=== PATIENT | female | born 1995 | race Caucasian/White ===

== ENCOUNTER 2020-02-06 23:50 | Emergency (ER) | payer BC, OTHER ==
[~2020-02-06] VITALS: Ht 172.7 cm; Wt 145.0 kg
[2020-02-07] MEDS ORDERED: LACTATED RINGERS 1,000 ML IV ONE (00:29)
[2020-02-07] MEDS ORDERED: ACETAMINOPHEN 500 MG TAB (TYLENOL) PO ONE (00:30)
[2020-02-07] MEDS ORDERED: ONDANSETRON 4 MG/2 ML (SDV) Z0FRAN IVP ONE (00:30)
--- NOTE | 2020-02-07 00:51 | ED Cough/URI ---
General Chief Complaint: Cough/Cold/Flu Symptoms Stated Complaint: COUGH Source: patient Exam Limitations: no limitations History of Present Illness Date Seen by Provider: Feb 07, 2020 Time Seen by Provider: 00:16 Initial Comments Patient presents to the ER by private conveyance with chief complaint she's had 2 weeks of cough and last couple days she's had more pain with deep inspiration or cough. She went to her walk-in clinic and was diagnosed with bronchitis and put on an inhaler which she says helps for a little bit as well as put on a steroid. She has no previous history of medical problems. She is not having any fever. She has had some diarrhea as well as nausea and vomiting for the past few days which has made it hard for her to eat and drink. She says she feels very dehydrated. She is not on any medications. She denies smoking, drinking or recreational drugs. Allergies and Home Medications Allergies Coded Allergies: No Known Drug Allergies (Unverified , 02/07/20) Patient Home Medication List Home Medication List Reviewed: Yes Review of Systems Review of Systems Constitutional: No chills, No fever; malaise EENTM: No ear discharge, No ear pain Respiratory: cough; No phlegm; short of breath; No wheezing Cardiovascular: No chest pain, No Hx of Intervention, No palpitations Gastrointestinal: No abdominal pain; diarrhea, nausea, vomiting Genitourinary: No decreased output, No discharge Musculoskeletal: No back pain, No joint pain Skin: No pruritus, No rash Psychiatric/Neurological: Denies Headache, Denies Numbness, Denies Paresthesia All Other Systems Reviewed Negative Unless Noted: Yes Past [id number] Hx Patient Social History Alcohol Use: Denies Use Recreational Drug Use: No Smoking Status: Never a Smoker Recent Foreign Travel: No Contact w/Someone Who Travel: No Physical Exam Vital Signs - First Documented Capillary Refill : Height: '" Weight: lbs. oz. kg; BMI Method: General Appearance: WD/WN, mild distress, obese Eyes: Bilateral Eye Normal Inspection, Bilateral Eye PERRL, Bilateral Eye EOMI HEENT: PERRL/EOMI, normal ENT inspection; No pharynx normal (oropharynx is mildly dry) Respiratory: lungs clear, normal breath sounds, no respiratory distress, no accessory muscle use Cardiovascular: normal peripheral pulses, regular rate, rhythm Extremities: normal range of motion, non-tender, normal inspection, normal capillary refill Neurologic/Psychiatric: alert, normal mood/affect, oriented x 3 Skin: normal color, warm/dry Progress/Results/Core Measures Suspected Sepsis SIRS Temperature: Pulse: Respiratory Rate: Laboratory Tests 02/07/20 00:55: White Blood Count 5.5 Blood Pressure / Mean: Laboratory Tests 02/07/20 00:55: Creatinine 1.02, Platelet Count 175, Total Bilirubin 0.8 Results/Orders Lab Results Laboratory Tests Test 02/07/20 00:55 Range/Units White Blood Count 5.5 4.3-11.0 10^3/uL Red Blood Count 5.64 H 3.80-5.11 10^6/uL Hemoglobin 15.8 11.5-16.0 g/dL Hematocrit 48 35-52 % Mean Corpuscular Volume 85 80-99 fL Mean Corpuscular Hemoglobin 28 25-34 pg Mean Corpuscular Hemoglobin Concent 33 32-36 g/dL Red Cell Distribution Width 12.7 10.0-14.5 % Platelet Count 175 130-400 10^3/uL Mean Platelet Volume 11.5 9.0-12.2 fL Immature Granulocyte % (Auto) 1 % Neutrophils (%) (Auto) 80 H 42-75 % Lymphocytes (%) (Auto) 14 12-44 % Monocytes (%) (Auto) 5 0-12 % Eosinophils (%) (Auto) 0 0-10 % Basophils (%) (Auto) 0 0-10 % Neutrophils # (Auto) 4.5 1.8-7.8 10^3/uL Lymphocytes # (Auto) 0.8 L 1.0-4.0 10^3/uL Monocytes # (Auto) 0.3 0.0-1.0 10^3/uL Eosinophils # (Auto) 0.0 0.0-0.3 10^3/uL Basophils # (Auto) 0.0 0.0-0.1 10^3/uL Immature Granulocyte # (Auto) 0.0 0.0-0.1 10^3/uL Sodium Level 141 135-145 MMOL/L Potassium Level 3.8 3.6-5.0 MMOL/L Chloride Level 107 98-107 MMOL/L Carbon Dioxide Level 21 21-32 MMOL/L Anion Gap 13 5-14 MMOL/L Blood Urea Nitrogen 11 7-18 MG/DL Creatinine 1.02 0.60-1.30 MG/DL Estimat Glomerular Filtration Rate > 60 BUN/Creatinine Ratio 11 Glucose Level 127 H 70-105 MG/DL Calcium Level 9.2 8.5-10.1 MG/DL Corrected Calcium 8.5-10.1 MG/DL Total Bilirubin 0.8 0.1-1.0 MG/DL Aspartate Amino Transf (AST/SGOT) 128 H 5-34 U/L Alanine Aminotransferase (ALT/SGPT) 191 H 0-55 U/L Alkaline Phosphatase 56 40-136 U/L Total Protein 8.3 H 6.4-8.2 GM/DL Albumin 4.6 H 3.2-4.5 GM/DL Serum Test, Qualitative NEGATIVE NEGATIVE Micro Results Microbiology 02/07/20 Influenza Types A,B Antigen (BRENDAN) - Final, Complete My Orders Orders - VANCE TURNER Ondansetron Injection (Zofran Injectio (02/07/20 00:30) Acetaminophen Tablet (Tylenol Tablet) (02/07/20 00:30) Ed Iv/Invasive Line Start (02/07/20 00:29) Lactated Ringers (Lr 1000 Ml Iv Solution (02/07/20 00:29) Cbc With Automated Diff (02/07/20 00:29) Comprehensive Metabolic Panel (02/07/20 00:29) Influenza A And B Antigens (02/07/20 00:29) Coronavirus Sars-Cov-2 So 2018 (02/07/20 00:29) Hcg,Qualitative Serum (02/07/20 00:29) Chest 1 View, Ap/Pa Only (02/07/20 01:38) Medications Given in ED Current Medications Medications Dose Ordered Sig/Leticia Route Start Time Stop Time Status Last Admin Dose Admin Acetaminophen 1,000 mg ONCE ONCE PO 02/07/20 00:30 02/07/20 00:34 DC 02/07/20 00:50 1,000 MG Lactated Ringer's 1,000 ml @ 0 mls/hr Q0M ONCE IV 02/07/20 00:29 02/07/20 00:34 DC 02/07/20 00:50 999 MLS/HR Ondansetron HCl 8 mg ONCE ONCE IVP 02/07/20 00:30 02/07/20 00:34 DC 02/07/20 00:50 8 MG Vital Signs/I&O 9/25/20 9/25/20 00:14 00:14 Temp 35.8 Pulse 113 Resp 20 B/P (MAP) 123/67 (85) O2 Delivery Room Air Room Air Capillary Refill : Progress Note : Time: 00:50 Progress Note Plan to give her some ondansetron, IV fluids for her tachycardia and dehydration. We'll get a COVID-19 influenza swab sent out. We'll get some basic labs to assess kidney function and white count. Chest x-ray. Lungs sound clear and her oxygen saturations in the mid to upper 90s on room air with nonlabored breathing. Occasional dry cough heard. Because she he'll lie we are not doing a full sepsis workup. Despite heart rate 115 we first went in the room, after this provider less than room her heart rate is down in the low 90s. Diagnostic Imaging Diagonstic Imaging: Xray Plain Films/CT/US/NM/MRI: chest Comments No acute cardiopulmonary processes noted on one view chest x-ray. Reviewed: Reviewed by Me Departure Impression Primary Impression: Bronchitis Disposition: HOME, SELF-CARE Condition: Stable Departure-Patient Inst. Decision time for Depature: 02:20 Referrals: LAVINIA DE GUZMAN MD (PCP) Primary Care Physician Patient Instructions: Acute Bronchitis, Adult (DC) Add. Discharge Instructions: Drink plenty of fluids. Ondansetron one tablet under the tongue every 6 hours as necessary for nausea or vomiting. Tessalon Perles 1 tablet every 6 hours as necessary for cough. Quarantine until 72 hours after your symptoms completely go away. Someone will call you with results of your COVID-19 test within the next 2-3 days. Return to the nearest ER should you have worsening difficulty breathing or other worrisome symptoms. All discharge instructions reviewed with patient and/or family. Voiced understanding. Scripts Benzonatate (Tessalon Perle) 100 Mg Capsule 100 MG PO Q6H PRN for COUGH, #30 CAP 0 Refills Prov: VANCE TURNER 02/07/20 Ondansetron (Ondansetron Odt) 4 Mg Tab.rapdis 4 MG PO Q6H PRN for NAUSEA/VOMITING, #10 TAB 0 Refills Prov: VANCE TURNER 02/07/20 Work/School Note: Work Release Form Date Seen in the Emergency Department: Feb 07, 2020 Return to Work: Feb 17, 2020 Restrictions: No Restrictions Other Restrictions Listed Below: May return when symptom-free for 72 hours. VANCE TURNER Feb 07, 2020 00:51
[2020-02-07 01:08] LABS: BASOPHILS % (AUTO) 0 % (0-10); EOSINOPHILS % (AUTO) 0 % (0-10); HEMATOCRIT 48 % (35-52); HEMOGLOBIN 15.8 g/dL (11.5-16.0); LYMPHOCYTES # (AUTO) 0.8 10^3/uL (1.0-4.0); LYMPHOCYTES % (AUTO) 14 % (12-44); MEAN CORPUSCULAR HEMOGLOBIN 28 pg (25-34); MEAN CORPUSCULAR HGB CONC 33 g/dL (32-36); MEAN CORPUSCULAR VOLUME 85 fL (80-99); MEAN PLATELET VOLUME 11.5 fL (9.0-12.2); MONOCYTES # (AUTO) 0.3 10^3/uL (0.0-1.0); MONOCYTES % (AUTO) 5 % (0-12); NEUTROPHILS # (AUTO) 4.5 10^3/uL (1.8-7.8); NEUTROPHILS % (AUTO) 80 % (42-75); PLATELET COUNT 175 10^3/uL (130-400); WHITE BLOOD COUNT 5.5 10^3/uL (4.3-11.0)
[2020-02-07 01:20] LABS: ALBUMIN 4.6 GM/DL (3.2-4.5); CHLORIDE 107 MMOL/L (98-107); POTASSIUM 3.8 MMOL/L (3.6-5.0); SODIUM 141 MMOL/L (135-145)
[2020-02-07 01:21] LABS: CALCIUM 9.2 MG/DL (8.5-10.1)
[2020-02-07 01:22] LABS: GLUCOSE 127 MG/DL (70-105); TOTAL PROTEIN 8.3 GM/DL (6.4-8.2)
[2020-02-07 01:23] LABS: CARBON DIOXIDE 21 MMOL/L (21-32)
[2020-02-07 01:24] LABS: BILIRUBIN,TOTAL 0.8 MG/DL (0.1-1.0)
[2020-02-07 01:26] LABS: ALKALINE PHOSPHATASE 56 U/L (40-136); CREATININE SERUM 1.02 MG/DL (0.60-1.30); GFR ESTIMATED > 60
[2020-02-07 01:27] LABS: BUN/CREATININE RATIO 11
[2020-02-07 01:29] LABS: ALANINE AMINOTRANSFERASE 191 U/L (0-55)
[2020-02-07] MEDS ORDERED: BENZ-13 PO (02:29)
[2020-02-07] MEDS ORDERED: ONDA4TAB11 PO (02:29)
[2020-02-07 02:35] VITALS: BP 108/63
--- NOTE | 2020-02-07 17:23 | NUR ---
Notified patient of isolation and quarantine for COVID positive test. Answered questions.
--- NOTE | 2020-02-07 18:20 | NUR ---
[facility].
== END 2020-02-07 02:36 | disposition home or self-care (01) ==
LOC: ER 23:58
DX: U07.1 COVID-19 (principal); J40 Bronchitis, not specified as acute or chronic
CPT/HCPCS: 71045; 80053; 84703; 85025; 87804; 99284; U0002; 36415; 87635

== ENCOUNTER 2021-04-21 04:43 | Emergency (ER) | payer BC ==
[~2021-04-21] VITALS: Ht 173 cm; Wt 150.0 kg
[~2021-04-21 04:43] MED LIST: BENZ-13 PO; ONDA4TAB11 PO
[2021-04-21 05:25] VITALS: BP 148/82
--- NOTE | 2021-04-21 05:42 | ED GU-Female ---
General Chief Complaint: Foreign Body Stated Complaint: CONDOM IN VAGINA Source: patient History of Present Illness Date Seen by Provider: Apr 21, 2021 Time Seen by Provider: 05:30 Initial Comments PT ARRIVES VIA POV FROM HOME PT STATES SHE HAS A CONDOM IN HER VAGINA AND IS UNABLE TO REMOVE IT OCCURRED AT 0440 THIS AM NO COMPLAINTS PCP: DR. DE GUZMAN Allergies and Home Medications Allergies Coded Allergies: No Known Drug Allergies (Unverified , 02/07/20) Patient Home Medication List Home Medication List Reviewed: Yes Benzonatate (Tessalon Perle) 100 Mg Capsule, 100 MG PO Q6H PRN for COUGH Prescribed by: VANCE TURNER on 02/07/20228 Ondansetron (Ondansetron Odt) 4 Mg Tab.rapdis, 4 MG PO Q6H PRN for NAUSEA/VOMITING Prescribed by: VANCE TURNER on 02/07/20228 Review of Systems Review of Systems Constitutional: no symptoms reported Genitourinary: see HPI LMP: Apr 08, 2021 Past Dbpyyil-Gmgvbi-Jsgjir Hx Seasonal Allergies Seasonal Allergies: No Past Medical History Surgeries: No Respiratory: No Cardiac: No Neurological: No Sexually Transmitted Disease: Yes (HERPES) Genitourinary: No Gastrointestinal: No Musculoskeletal: No Endocrine: No HEENT: No Cancer: No Psychosocial: No Integumentary: Yes Herpes Blood Disorders: No Physical Exam Vital Signs Capillary Refill : Height, Weight, BMI Height: '" Weight: lbs. oz. kg; 48.00 BMI Method: General Appearance: WD/WN, no apparent distress, obese Pelvic: normal external exam, other (CONDOM IN VAGINA, AT CERVIX. EASILY REMOVED WITHOUT COMPLICATIONS. VAGINA AND CERVIX OTHERWISE NORMAL. ) Progress/Results/Core Measures Suspected Sepsis SIRS Temperature: Pulse: Respiratory Rate: Blood Pressure / Mean: Results/Orders Vital Signs/I&O Capillary Refill : Departure Impression Primary Impression: REMOVAL OF RETAINED CONDOM IN VAGINA Disposition: 01 HOME, SELF-CARE Condition: Improved Departure-Patient Inst. Decision time for Depature: 05:40 Referrals: LAVINIA DE GUZMAN MD (PCP/Family) Primary Care Physician Patient Instructions: Vaginal Foreign Body Add. Discharge Instructions: FOLLOW UP WITH YOUR DR NEEDED All discharge instructions reviewed with patient and/or family. Voiced understanding. JAMARCUS TURNER DO Apr 21, 2021 05:42
== END 2021-04-21 05:48 | disposition home or self-care (01) ==
LOC: EDUNIT# 04:43 → ER 04:48
DX: Z30.433 Encounter for removal and reinsertion of intrauterine contraceptive device (principal); E66.9 Obesity, unspecified; Z68.42 Body mass index [BMI] 45.0-49.9, adult
CPT/HCPCS: 99281